=== PATIENT | female | born 1945 | race Caucasian/White ===

== ENCOUNTER 2019-01-20 13:12 | Emergency (ER) | payer MEDICARE ==
[~2019-01-20] VITALS: Ht 172.7 cm; Wt 74.8 kg
[2019-01-20 14:14] LABS: BASO # 0.1 10^3/uL (0.0-0.2); BASO % 0.3 % (0.0-1.0); EOS % 0.1 % (0.0-3.0); HEMATOCRIT 46.6 % (36.0-47.0); HEMOGLOBIN 15.9 g/dl (12.0-15.5); LYMPH # 1.7 10^3/uL (1.5-5.0); LYMPH % 9.5 % (24.0-44.0); MEAN CORPUSCULAR HEMOGLOBIN 31.7 pg (27.0-33.0); MEAN CORPUSCULAR HGB CONC 34.1 g/dl (32.0-36.5); MONO # 0.6 10^3/uL (0.0-0.8); MONO % 3.2 % (0.0-5.0); NEUTROPHILS # 15.2 10^3/uL (1.5-8.5); NEUTROPHILS % 86.4 % (36.0-66.0); PLATELET COUNT, AUTOMATED 337 10^3/uL (150-450); RED BLOOD COUNT 5.01 10^6/uL (4.00-5.40); WHITE BLOOD COUNT 17.6 10^3/uL (4.0-10.0)
[2019-01-20] MEDS ORDERED: NS 1,000 ML IV ONE ×2 (14:15→15:45)
[2019-01-20] MEDS ORDERED: ONDANSETRON 4MG/2ML VIAL (J2405) IV ONE (14:15)
[2019-01-20 14:21] LABS: ALBUMIN 3.9 GM/DL (3.2-5.2); ALT/SGPT 27 U/L (12-78); BILIRUBIN,DIRECT 0.2 MG/DL (0.0-0.2); BILIRUBIN,TOTAL 0.7 MG/DL (0.2-1.0); BLOOD UREA NITROGEN 17 MG/DL (7-18); CALCIUM LEVEL 9.5 MG/DL (8.8-10.2); CARBON DIOXIDE LEVEL 25 MEQ/L (21-32); CHLORIDE LEVEL 104 MEQ/L (98-107); CREATININE FOR GFR 0.78 MG/DL (0.55-1.30); GLOMERULAR FILTRATION RATE > 60.0 (>39); GLUCOSE, FASTING 118 MG/DL (70-100); LIPASE 91 U/L (73-393); POTASSIUM SERUM 3.9 MEQ/L (3.5-5.1); SODIUM LEVEL 140 MEQ/L (136-145); TOTAL PROTEIN 8.1 GM/DL (6.4-8.2)
[2019-01-20 14:43] LABS: CK-MB VALUE MASS 3.3 NG/ML (<3.6); CPK CREATINE PHOSPHOKINASE 103 U/L (26-192); TROPONIN I 0.26 NG/ML (< 0.10)
[2019-01-20 14:48] LABS: INR 1.02; PARTIAL THROMBOPLASTIN TIME 27.1 SECONDS (25.0-38.4); PROTHROMBIN TIME 13.1 SECONDS (11.8-14.0)
[2019-01-20] MEDS ORDERED: METOCLOPRAMIDE INJ 10MG/2ML VIAL (J2765) IV ONE (15:00)
--- NOTE | 2019-01-20 15:53 | REP ---
Clinical: Atrial fibrillation . Comparison: None . Findings: The mediastinum and cardiac silhouette are stable and within normal limits for portable technique. The lung gray are clear without acute consolidation, effusion, or pneumothorax. Skeletal structures are intact. Impression: No acute cardiopulmonary process appreciated. Electronically Signed by Pascual Santos MD 01/20/2019 03:44 P
[2019-01-20] MEDS ORDERED: ESTR1TAB PO (15:59)
[2019-01-20] MEDS ORDERED: ROSU5TAB5 PO (15:59)
[2019-01-20] MEDS ORDERED: LEVO50TA5 PO (15:59)
[2019-01-20] MEDS ORDERED: LEXA5TAB13 PO (15:59)
[2019-01-20 16:45] LABS: CK-MB VALUE MASS 3.8 NG/ML (<3.6); MB/CK RELATIVE INDEX 3.55 (< OR =4); TROPONIN I 0.35 NG/ML (< 0.10)
[2019-01-20] MEDS ORDERED: ISOVUE-370 76% 100ML VIAL (Q9967) As Ordered ONE (17:11)
[2019-01-20] MEDS ORDERED: METOPROLOL TART 50 MG TAB PO ONE (18:00)
[2019-01-20] MEDS ORDERED: METOPROLOL 5 MG/5 ML VIAL IV SCH (18:00)
--- NOTE | 2019-01-20 18:01 | REPVR ---
EXAM: CT Angiography Chest With Contrast EXAM DATE/TIME: 01/20/2019 5:32 PM CLINICAL HISTORY: 73 years old, female; Pain; Other: Pe; Additional info: R/O pe TECHNIQUE: Imaging protocol: Computed tomographic angiography of the chest with intravenous contrast. 3D rendering: MIP reconstructed images were created and reviewed. Radiation optimization: All CT scans at this facility use at least one of these dose optimization techniques: automated exposure control; mA and/or kV adjustment per patient size (includes targeted exams where dose is matched to clinical indication); or iterative reconstruction. Contrast material: ISOVUE 370; Contrast volume: 75 ml; Contrast route: IV; COMPARISON: CR Chest, 1 view 01/20/2019 3:39 PM FINDINGS: Pulmonary arteries: There are no pulmonary emboli. Aorta: The aorta demonstrates mild atherosclerotic calcification. There is no aortic dissection or aneurysm. Lungs: There is bibasilar compressive atelectasis. Pleural space: Unremarkable. No pneumothorax. No pleural effusion. Heart: Unremarkable. No cardiomegaly. No pericardial effusion. Lymph nodes: Unremarkable. No enlarged lymph nodes. Bones/joints: The spine demonstrates mild degenerative changes. Levoscoliosis. Soft tissues: Unremarkable. IMPRESSION: 1. There is no aortic dissection or aneurysm. 2. There are no pulmonary emboli. Electronically signed by: Miguel Bueno On 01/20/2019 18:00:48 PM
[2019-01-20 18:47] VITALS: BP 156/88
[2019-01-20] MEDS ORDERED: HEPARIN DRIP 25,000 UNITS in IV 1 EA IV SCH (18:47)
[2019-01-20] MEDS ORDERED: HEPARIN SOD (PORCINE) 5000 UNITS/ML VIAL IV ONE (19:00)
[2019-01-20 20:38] LABS: CK-MB VALUE MASS 3.6 NG/ML (<3.6); MB/CK RELATIVE INDEX 3.71 (< OR =4); TROPONIN I 0.38 NG/ML (< 0.10)
--- NOTE | 2019-01-20 20:40 | ECGEPIP ---
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
--- NOTE | 2019-01-20 20:40 | ECGEPIP ---
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
[2019-01-20] MEDS ORDERED: ASPIRIN 325 MG TAB PO ONE (23:00)
[2019-01-20 23:41] VITALS: BP 139/87
== END 2019-01-20 23:44 | disposition short-term general hospital (02) ==
LOC: M ED 13:12
DX: I21.4 Non-ST elevation (NSTEMI) myocardial infarction (principal); I48.91 Unspecified atrial fibrillation; E78.5 Hyperlipidemia, unspecified; E03.9 Hypothyroidism, unspecified; F33.9 Major depressive disorder, recurrent, unspecified; Z79.899 Other long term (current) drug therapy; Z79.890 Hormone replacement therapy
CPT/HCPCS: 36415; 71045; 71275; 80048; 80076; 81001; 82550; 82553; 83605; 83690; 84484; 85025; 85379; 85610; 85730; 93005; 96361; 96374; 96375; 99285; J2405; J2765; Q9967

== ENCOUNTER → 2020-01-30 | Outpatient (CLI) | payer MEDICARE ==
[~2020-01-30] MED LIST: ESTR1TAB PO; LEVO50TA5 PO; LEXA5TAB13 PO; ROSU5TAB5 PO
--- NOTE | 2020-02-14 11:23 | REP ---
RIGHT HIP: 2 VIEWS. HISTORY: PAIN. FINDINGS: AP and frog legged views of the right hip demonstrate right hip arthroplasty components in good position. No fractured or subluxation is seen. The visualized right angeles-pelvis is intact. IMPRESSION: No traumatic abnormality is seen. Status post right hip arthroplasty. MTDD
== END ==
LOC: M WUC 14:21
PROVIDERS: ATTEND Physician Assistant
DX: M25.551 Pain in right hip (principal); Z96.641 Presence of right artificial hip joint